=== PATIENT | male | born 1935 | race Caucasian/White ===

== ENCOUNTER 2016-05-28 08:29 | Day surgery (SDC) | payer OTHER ==
[2016-05-28 08:56] VITALS: BP 170/105; PULSE 76; RESP 20; TEMP 97.8; O2SAT 97
[2016-05-28] MEDS ORDERED: CILO50TA PO (08:57)
[2016-05-28] MEDS ORDERED: TAMS5CAP PO (08:57)
[2016-05-28] MEDS ORDERED: OXYB5TAB10 PO (08:57)
[2016-05-28] MEDS ORDERED: ATOR10TA15 PO (08:57)
[2016-05-28] MEDS ORDERED: IODIXANOL 320 MG/ML 10 ML VIAL (for Rad CT) IV ONE (11:54)
[2016-05-28 12:05] VITALS: BP 160/84; PULSE 62; RESP 20; TEMP 97.4; O2SAT 99
--- NOTE | 2016-05-28 14:17 | RADRPT ---
EXAM DATE/TIME: 05/28/2016 11:51 [place] COMPARISON: No previous studies available for comparison. INDICATIONS : Carotid stenosis. IV CONTRAST: 49 cc Visipaque (iodixanol) IV RADIATION DOSE: 26.80 CTDIvol (mGy) MEDICAL HISTORY : None SURGICAL HISTORY : Nephrectomy, right. ENCOUNTER: Initial ACUITY: 1 day PAIN SCALE: 0/10 LOCATION: neck Elevated flow velocities and ICA/CCA ratios have been found to correlate with increased degrees of vessel stenosis, calculated as percentage of diameter relative to a normal segment of distal ICA/CCA. TECHNIQUE: Volumetric scanning was performed using a multirow detector CT scanner. The data was post processed with a variety of visualization algorithms including full-volume maximum intensity projection, multip lanar sliding thin-slab reformation, curved-planar reformation, and surface-rendering techniques. Us ing automated exposure control and adjustment of the mA and/or kV according to patient size, radiatio n dose was kept as low as reasonably achievable to obtain optimal diagnostic quality images. FINDINGS: AORTIC ARCH: The innominate and left common carotid artery have a common origin. Great vessels are widely patent. Mild calcific plaque is seen in the aortic arch. RIGHT CAROTID: Significant calcified plaque is identified in the right carotid bifurcation. There is moderate stenos is in the proximal internal carotid artery measuring in the 50-60% range. High-grade stenosis is seen at the origin of the external carotid artery. LEFT CAROTID: Moderate calcified plaque is identified in the left carotid bifurcation. A high-grade stenosis measur ing greater than 80% diameter narrowing is identified in the proximal left internal carotid artery at it origin. The left external carotid artery is widely patent. VERTEBRALS: The vertebral arteries are mildly asymmetric in size with the left being slightly larger. There is ec centric plaque in both proximal vertebral arteries. No stenotic lesions are seen. CONCLUSION: Significant calcified plaque in both carotid bifurcations. High-grade stenosis of the proximal left internal carotid artery measuring greater than 80%. Moderate stenosis in the proximal right internal carotid artery measuring 50-60%. Patent vertebral arteries without significant proximal stenosis. Cirilo Haider MD on May 28, 2016 at 13:46 Board Certified Radiologist. This report was verified electronically.
== END 2016-05-28 13:00 | disposition home or self-care (01) ==
LOC: HRAD 08:29 → HRIP 08:31 → EDSTATUS 09:00 → HRAD 13:00
PROVIDERS: ATTEND Surgery Vascular Surgery
DX: I65.29 Occlusion and stenosis of unspecified carotid artery (principal)
CPT/HCPCS: 70498; 82565; 84520; 96360; 96361; Q9967

== ENCOUNTER 2016-07-30 11:14 | Day surgery (SDC) | payer MEDICARE, OTHER ==
[~2016-07-30] VITALS: Ht 170.2 cm; Wt 74.1 kg
[~2016-07-30 11:14] MED LIST: ATOR10TA15 PO; CILO50TA PO; OXYB5TAB10 PO; TAMS5CAP PO
[2016-07-30] MEDS ORDERED: ASPI81TA9 PO (12:05)
[2016-07-30 12:09] VITALS: BP 134/70; PULSE 53; RESP 18; TEMP 97.3; O2SAT 98
[2016-07-30] MEDS ORDERED: SODIUM CHLORID 0.9% 500 ML IV PRN (12:30)
[2016-07-30] MEDS ORDERED: POVIDONE IODINE 5% (ANTISEPSIS KIT) 4 APPLICATIONS EACH NARE PRN (12:30)
[2016-07-30] MEDS ORDERED: CHLORHEXIDINE GLUCONATE 2 % 1 PACK (2 CLOTHS) TOPICAL PRN (12:30)
[2016-07-30] MEDS ORDERED: ceFAZolin 1,000 MG/NS 100 ML IV SCH ×2 (12:30)
[2016-07-30] MEDS ORDERED: METOPROLOL TARTRATE 25 MG TAB PO PRN (12:30)
[2016-07-30] MEDS ORDERED: LACTATED RINGER'S 1000 ML IV PRN (12:30)
[2016-07-30] MEDS ORDERED: INSULIN HUMAN REGULAR 1,000 UNITS/10 ML VIAL SQ PRN (12:30)
[2016-07-30 14:54] LABS: AUTOMATED NEUTROPHIL # 2.3 TH/MM3 (1.8-7.7); BASOPHIL % 1.1 % (0.0-2.0); EOSINOPHIL # 0.2 TH/MM3 (0-0.4); EOSINOPHIL % 4.1 % (0.0-4.0); HEMATOCRIT 29.1 % (39.0-51.0); LYMPHOCYTE # 1.4 TH/MM3 (1.0-4.8); MEAN CELL VOLUME 86.4 FL (80.0-100.0); MEAN CORPUSCULAR HEMOGLOBIN 29.4 PG (27.0-34.0); MONO % 8.7 % (0.0-8.0); NEUT % 53.1 % (16.0-70.0); RED BLOOD COUNT 3.37 MIL/MM3 (4.50-5.90); WHITE BLOOD COUNT 4.4 TH/MM3 (4.0-11.0)
--- NOTE | 2016-07-30 15:00 | EKG ---
Date Performed: 07/30/2016 Time Performed: 11:57:57 PTAGE: 81 years EKG: SINUS BRADYCARDIA BORDERLINE ECG NO PREVIOUS TRACING DOCTOR: Murray Ragsdale Interpretating Date/Time 07/30/2016 14:56:40
[2016-07-30 15:01] LABS: APTT (PATIENT) 27.8 SEC (24.3-30.1); INTERNATIONAL NORMALIZED RATIO 1.1 RATIO
[2016-07-30 15:03] LABS: HEMO FLAGS AUTO DIFF
[2016-07-30 15:20] LABS: ALT (GPT) 18 U/L (12-78); ANION GAP 6 MEQ/L (5-15); AST (GOT) 13 U/L (15-37); BICARBONATE 27.2 MEQ/L (21.0-32.0); BLOOD UREA NITROGEN 26 MG/DL (7-18); CHLORIDE 110 MEQ/L (98-107); GLOMERULAR FILTRATION RATE 35 ML/MIN (>89); POTASSIUM 4.1 MEQ/L (3.5-5.1); SODIUM (NA) 143 MEQ/L (136-145)
[2016-07-30 15:22] LABS: ALKALINE PHOSPHATASE 62 U/L (45-117); TOTAL BILIRUBIN ADULT 0.5 MG/DL (0.2-1.0)
[2016-07-30] MEDS ORDERED: HEPARIN SODIUM - IV 10,000 UNITS/10 ML VIAL ONE (15:47)
[2016-07-30] MEDS ORDERED: LIDOCAINE HCL 1% 50 ML VIAL ONE (15:47)
[2016-07-30] MEDS ORDERED: BUPIVACAINE/EPINEPHRINE 0.5% PF 30 ML VIAL ONE (15:47)
[2016-07-30] MEDS ORDERED: PROTAMINE SULFATE 50 MG/5 ML VIAL ONE (15:47)
[2016-07-30] MEDS ORDERED: HEPARIN SODIUM - SQ 10,000 UNITS/ML VIAL ONE (15:50)
[2016-07-30 16:12] LABS: PLATELET ESTIMATE SMEAR LOW (NORMAL); PLATELET MORPHOLOGY CLUMPED (NORMAL); SCAN/DIFF AUTO DIFF CONFIRMED
== END 2016-07-30 17:36 | disposition home or self-care (01) ==
LOC: HSDC 11:14 → HSDI 11:14 → UNDOADMIN 11:14 → HSDI 11:14 → EDSTATUS 14:00 → UNDODISIN 17:36 → HSDC 17:36
PROVIDERS: ATTEND Surgery Vascular Surgery
DX: I65.9 Occlusion and stenosis of unspecified precerebral artery (principal); Z53.9 Procedure and treatment not carried out, unspecified reason; Z01.810 Encounter for preprocedural cardiovascular examination
CPT/HCPCS: 80053; 85025; 85049; 85610; 85730; 86850; 86900; 86901; 86920; 93005; G0463; J0690; 99211; J1644; J2720